=== PATIENT | female | born 1945 | race Two or more races ===

== ENCOUNTER 2025-01-06 14:25 | Emergency (ER) | payer OTHER ==
[~2025-01-06] VITALS: Ht 157.5 cm; Wt 59.9 kg
[~2025-01-06 14:25] MED LIST: Glucophage PO; HumaLOG 100 UNIT/1 ML (3ML) SUBCUTANEO; LOPERAMIDE2 M1 PO; Lantus 1000 U/10 ML SUBCUTANEO; Levsin/Sl 0.125 MG TAB.SUBL SL; PROTONIX40 MG PO; Zestril PO
[2025-01-06] MEDS ORDERED: LACTOBACILLUS ACIDOPHILUS 1 CAP CAP PO ONE ×2 (15:56→16:00)
[2025-01-06] MEDS ORDERED: ONDANSETRON HCL 2 MG/ML VIAL ONE (15:56)
[2025-01-06] MEDS ORDERED: FAMOTIDINE/PF 20 MG/2 ML VIAL ONE (15:56)
[2025-01-06] MEDS ORDERED: 0.9 % SODIUM CHLORIDE 500 ML IV ONE (16:00)
[2025-01-06] MEDS ORDERED: FAMOTIDINE/PF 20 MG/2 ML VIAL IV ONE (16:00)
[2025-01-06] MEDS ORDERED: ONDANSETRON HCL 2 MG/ML VIAL IV ONE (16:00)
[2025-01-06 16:58] LABS: PH,URINE 5.5 (5.0-8.0); URINE APPEARANCE Cloudy; URINE BILIRRUBIN Negative (NEGATIVE); URINE BLOOD Negative; URINE COLOR Yellow; URINE KETONE Negative (NEGATIVE); URINE LEUKOCYTE Moderate; URINE NITRATE Negative; URINE PROTEIN 30 (NEGATIVE); URINE UROBILINOGEN 0.2 E.U./dl
[2025-01-06 17:02] LABS: URINE BACTERIA 132.1 uL (0.0-1933); URINE CAST 2.35 uL (0.0-1.40); URINE EPITHELIAL CELLS 79.4 uL (0.0-38.8); URINE RBC 3.3 uL (0.0-20.8); URINE WBC 107.6 uL (0.0-23.2)
[2025-01-06 17:11] LABS: URINE GLUCOSE 250 MG/DL (NEGATIVE)
[2025-01-06 17:21] LABS: ALBUMIN 3.6 gm/dL (3.4-5.0); BILIRUBIN TOTAL 0.65 mg/dL (0.3-1.2); CREATININE SERUM 0.96 mg/dL (0.55-1.02); GFR 56.06; GLOBULINA 3.9 G/DL (2.4-3.5); POTASSIUM 4.22 mEq/L (3.5-5.1); TOTAL PROTEIN 7.5 gm/dL (6.4-8.2)
[2025-01-06 17:26] LABS: EOS # 0.27 (0.04-0.54); EOS % 2.6 % (0.7-7.0); HEMATOCRIT 37.8 % (34.1-44.9); LYMPH # 2.34 (1.18-3.74); LYMPH % 22.2 % (19.3-53.1); MONO # 0.78 (0.24-0.82); MONO % 7.4 % (4.7-12.5); NEUT % 66.4 % (34.0-71.1); PLATELET COUNT 349 K/uL (163-369); RED BLOOD COUNT 4.33 M/uL (3.93-5.22); RED CELL DISTRIBUTION WIDTH 12.4 % (11.6-14.4)
[2025-01-06] MEDS ORDERED: MACROBID 100 M100 MG PO (18:59)
== END 2025-01-06 19:15 ==
LOC: ER 17:27
PROVIDERS: Emergency Medicine; General Practice
DX: N39.0 Urinary tract infection, site not specified (principal); R10.9 Unspecified abdominal pain; I10 Essential (primary) hypertension; E11.9 Type 2 diabetes mellitus without complications; Z79.4 Long term (current) use of insulin; Z88.0 Allergy status to penicillin
CPT/HCPCS: 36415; 74176; 96365; 96366; 99284; J7030